=== PATIENT | male | born 1950 | race African-American/Black ===

== ENCOUNTER 2023-06-23 16:34 | Emergency (ER) | payer MEDICAID ==
[~2023-06-23] VITALS: Ht 170.2 cm; Wt 70.0 kg
[2023-06-23 16:44] VITALS: O2SAT 97
[2023-06-23] MEDS ORDERED: IBUPROFEN 400MG TABLET PO ONE (18:00)
[2023-06-23] MEDS ORDERED: ACETAMINOPHEN 325MG TABLET PO ONE (18:00)
[2023-06-23 20:01] LABS: BASOPHILS % 0.8 % (0.0-2.0); EOSINOPHILS % 1.2 % (0.0-5.0); HEMOGLOBIN. 14.7 g/dL (14.0-18.0); LYMPHOCYTES % 17.2 % (20.0-50.0); MEAN CORPUSCULAR HEMOGLOBIN 29.5 pg (28.0-32.0); MEAN CORPUSCULAR HGB CONC 33.5 g/dL (31.0-37.0); MEAN CORPUSCULAR VOLUME 88.1 fL (80.0-94.0); MEAN PLATELET VOLUME 8.2 fl (7.4-10.4); MONOCYTES % 8.2 % (2.0-8.0); NEUTROPHILS % 72.6 % (40.0-76.0); PLATELET 224 x1000/uL (130-400); RED CELL DISTRIBUTION WIDTH 14.1 % (11.6-14.6); WHITE BLOOD COUNT 11.3 x1000/uL (4.5-11.0)
[2023-06-23 20:07] LABS: PARTIAL THROMBOPLASTIN TIME 26.8 sec (23.4-31.0); PROTHROMBIN TIME 10.8 sec (9.6-11.0)
[2023-06-23 20:14] LABS: ALANINE AMINOTRANSFERASE 16 IU/L (10-49); ALBUMIN 4.5 g/dL (3.2-4.8); ASPARTATE AMINOTRANSFERASE 23 IU/L (<34); BILIRUBIN TOTAL 0.8 mg/dL (0.1-1.0); CALCIUM 9.5 mg/dL (8.7-10.4); CARBON DIOXIDE 28 mEq/L (21-32); CHLORIDE 102 mEq/L (98-107); GLUCOSE 108 mg/dL (70-105); POTASSIUM 3.7 mEq/L (3.5-5.1); PROTEIN TOTAL 8.7 g/dL (6.0-8.3); SODIUM 137 mEq/L (136-145); UREA NITROGEN BLOOD 16 mg/dL (9-23)
[2023-06-23] MEDS: IBUPROFEN 400MG TABLET PO NR (22:00)
[2023-06-23] MEDS: ACETAMINOPHEN 325MG TABLET PO NR (22:00)
[2023-06-23] MEDS ORDERED: HYDR-4622 TP (23:07)
[2023-06-23] MEDS ORDERED: DIBU28OI RC (23:07)
[2023-06-23 23:30] VITALS: BP 166/81; PULSE 89; RESP 18; TEMP 98.8
== END 2023-06-23 23:30 | disposition home or self-care (01) ==
LOC: ER 16:34
DX: K64.9 Unspecified hemorrhoids (principal); I10 Essential (primary) hypertension; Z85.9 Personal history of malignant neoplasm, unspecified
CPT/HCPCS: 36415; 80053; 85025; 86850; 86900; 99283